=== PATIENT | male | born 1990 | race Caucasian/White ===

== ENCOUNTER 2021-01-12 11:22 | Emergency (ER) | payer BC ==
--- NOTE | 2021-01-12 11:58 | EDM.PDOC ---
ED HPI GENERAL MEDICAL PROBLEM - General Chief Complaint: Lower Extremity Injury/Pain Stated Complaint: RT ANKLE INJURY Time Seen by Provider: 01/12/21 11:39 Source of Information: Reports: Patient, RN Notes Reviewed History Limitations: Reports: No Limitations - History of Present Illness INITIAL COMMENTS - FREE TEXT/NARRATIVE: Patient is a 30-year-old male who presents to the ER for a right ankle injury. States that he is stepped off the tailgate of his truck, and ended up rolling his right ankle. States he initially was not able to bear weight on this however he walked into the ER with somewhat of a limp. States that the pain seems to be worse when he dorsiflexes his foot. He did not take any sort of Tylenol ibuprofen, he has not iced the injury. This happened at around 10 or 1030 this morning. Denies any numbness or tingling distal to the injury. There is a small amount of swelling on the lateral malleolus, and he is somewhat tender in this area. Patient denies any other sick-like symptoms, fever/chills, cough/shortness of breath, nausea/vomiting/diarrhea. Patient notes he was at work when he had this injury. Right Feet Pain Score (Numeric/FACES): 5 - Related Data Allergies Allergy/AdvReac Type Severity Reaction Status Date / Time No Known Allergies Allergy Verified 01/12/21 11:39 Home Meds: Home Meds . [No Known Home Meds] 01/12/21 [History] Past Medical History Genitourinary History: Reports: Renal Calculus - Infectious Disease History Infectious Disease History: Reports: Chicken Pox Social & Family History - Tobacco Use Tobacco Use Status *Q: Current Every Day Tobacco User Years of Tobacco use: 12 Packs/Tins Daily: 1 - Caffeine Use Caffeine Use: Reports: Soda - Recreational Drug Use Drug Use in Last 12 Months: No Review of Systems - Review of Systems Review Of Systems: Comprehensive ROS is negative, except as noted in HPI. ED EXAM, GENERAL - Physical Exam Exam: See Below Exam Limited By: No Limitations General Appearance: Alert, WD/WN, No Apparent Distress Respiratory/Chest: No Respiratory Distress, Lungs Clear, Normal Breath Sounds, No Accessory Muscle Use, Chest Non-Tender Cardiovascular: Normal Peripheral Pulses, Regular Rate, Rhythm, No Edema Peripheral Pulses: 2+: Dorsalis Pedis (L), Dorsalis Pedis (R) Extremities: Normal Inspection, Normal Range of Motion, Normal Capillary Refill Neurological: Alert, Oriented, Normal Cognition, No Motor/Sensory Deficits Psychiatric: Normal Affect, Normal Mood Skin Exam: Warm, Dry, Intact, Normal Color, No Rash Course - Vital Signs Last Recorded V/S: Last Vital Signs Temp 98.2 F 01/12/21 11:41 Pulse 89 01/12/21 11:41 Resp 20 01/12/21 11:41 BP 137/79 01/12/21 11:41 Pulse Ox 99 01/12/21 11:41 - Orders/Labs/Meds Orders: Active Orders 24 hr Category Date Time Status Ankle Min 3V Rt [CR] Stat Exams 01/12/21 11:54 Ordered - Re-Assessments/Exams Free Text/Narrative Re-Assessment/Exam: 01/12/21 11:57 Patient presents to the ER for right ankle injury, we will go ahead and get x- rays of the area as this was a work injury as well. 01/12/21 12:19 X-rays have been performed, reviewed by myself at this time and I do not see any sign of acute fracture or other bony abnormalities on the ankle x-rays. Mortise appears intact, there appear to be no avulsions. Official radiology read is still pending however. 01/12/21 12:35 X-rays were reviewed with Dr. Shin, and he agrees with my assessment no acute fractures or other abnormalities, we will go ahead and get the patient's ankle Dudley wrap, send him home with conservative recommendations have him follow-up if he is not feeling much better in 7 to 10 days. Departure - Departure Time of Disposition: 12:36 Disposition: Home, Self-Care 01 Condition: Good Clinical Impression: Right ankle sprain Qualifiers: Encounter type: initial encounter Involved ligament of ankle: unspecified ligament Qualified Code(s): S93.401A - Sprain of unspecified ligament of right ankle, initial encounter - Discharge Information *PRESCRIPTION DRUG MONITORING PROGRAM REVIEWED*: No *COPY OF PRESCRIPTION DRUG MONITORING REPORT IN PATIENT LUPILLO: No Instructions: Ankle Sprain, [id number] Referrals: PCP,None [Primary Care Provider] - Forms: ED Department Discharge Additional Instructions: You have been evaluated in the ED for your right ankle injury. Your x-ray demonstrated no acute fracture or other bony abnormalities. Please use ice as tolerated to the affected area. Please try to elevate the affected area to relieve swelling. You may take Tylenol 500 mg or ibuprofen 600mg q6 hrs for pain relief. Please do so until you have a tolerable level of pain with activity. Do not exceed 4000mg Tylenol or 3200mg ibuprofen in a 24 hour time period. Please follow-up with your regular provider for reevaluation, if your injury is not feeling much better in roughly 7 to 10 days time. Please return to ED if your symptoms should change or worsen. Sepsis Event Note (ED) - Evaluation Sepsis Screening Result: No Definite Risk - Focused Exam Vital Signs: Vital Signs Temp Pulse Resp BP Pulse Ox 01/12/21 11:41 98.2 F 89 20 137/79 99 - My Orders Last 24 Hours: My Active Orders 01/12/21 11:54 Ankle Min 3V Rt [CR] Stat - Assessment/Plan Last 24 Hours: My Active Orders 01/12/21 11:54 Ankle Min 3V Rt [CR] Stat
--- NOTE | 2021-01-12 13:00 | CR ---
Right ankle: 4 views of the right ankle were obtained. Comparison: No prior ankle study is available. Ankle mortise is symmetric. No acute fracture, dislocation or other bony abnormality is seen. Impression: 1. No abnormality is identified on right ankle exam. Diagnostic code #1
== END 2021-01-12 13:00 | disposition home or self-care (01) ==
LOC: JD.ED 11:22
DX: S93.401A Sprain of unspecified ligament of right ankle, initial encounter (principal); Z72.0 Tobacco use; X50.1XXA Overexertion from prolonged static or awkward postures, initial encounter
CPT/HCPCS: 73610-26-RT; 73610-RT; 99282; 99283-25

== ENCOUNTER 2022-10-29 16:51 | Emergency (ER) | payer BC ==
[2022-10-29] MEDS ORDERED: Diphtheria,Pertussis(Acell),Tetanus Vaccine 0.5 ML Syringe IM ONE (17:33)
[2022-10-29] MEDS ORDERED: Lidocaine 1% 10 ML MDV INJECT ONE (17:33)
== END 2022-10-29 18:34 | disposition home or self-care (01) ==
LOC: JD.ED 16:51
DX: S61.215A Laceration without foreign body of left ring finger without damage to nail, initial encounter (principal); Z23 Encounter for immunization; W26.8XXA Contact with other sharp object(s), not elsewhere classified, initial encounter
CPT/HCPCS: 12001; 90471; 90715; 99282; J3490